=== PATIENT | female | born 1970 | race Caucasian/White ===

== ENCOUNTER 2016-10-04 16:56 | Inpatient (IN) | payer BC ==
[2016-10-04] MEDS ORDERED: ERTAPENEM 1 GM in NS 100 ML IV ONE (17:20)
--- NOTE | 2016-10-04 17:26 | EDPHY ---
H & P Stated Complaint: Just had US found gallstones referred for possible ERCP Time Seen by Provider: 10/04/16 17:12 - Personal History LMP (Females 10-55): 8-14 Days Ago Current Tetanus Diphtheria and Acellular Pertussis (TDAP): Yes - Medical/Surgical History Other PMH: Cancer dx at 18, HTN, hypothyrodism - Social History Smoking Status: Former smoker Constitutional: Initial Vital Signs Heart Rate 88 10/04/16 17:00 Respiratory Rate 14 10/04/16 17:00 Blood Pressure 145/99 H 10/04/16 17:00 O2 Sat (%) 100 10/04/16 17:00 O2 Delivery Mode Room Air Allergies/Adverse Reactions: morphine Allergy (Mild, Verified 10/04/16 17:06) Home Medications: Medication Instructions Recorded ALPRAZolam [Alprazolam] 0.5 mg PO BID 10/04/16 Amlodipine Besylate [Norvasc] 5 mg PO HS 10/04/16 Famotidine [Pepcid] 40 mg PO BID 10/04/16 Hydrochlorothiazide [HCTZ (*)] 25 mg PO DAILY 10/04/16 Levothyroxine [Synthroid 200 mcg 200 mcg PO DAILY06 10/04/16 (*)] Zolpidem Tartrate [Ambien 5MG (*)] 5 - 10 mg PO HS 10/04/16 Medical Decision Making - Diagnostics Imaging: Imaging Impressions Abdomen Ultrasound 10/04/16 16:00 Impression: 1. Cholelithiasis without secondary evidence of cholecystitis. 2. Large common duct raising the possibility of occult choledocholithiasis or history of passing gallstones. Consider preoperative MRCP if the patient is an operative candidate. Results called to Dr. Bright at 4:39 PM. ED Course/Re-evaluation: CHIEF COMPLAINT: RUQ abdominal pain HISTORY OF PRESENT ILLNESS: The patient is a 46 y/o female, with a history of hypertension, complaining of waxing and waning RUQ pain for the last couple days. Her pain is much worse after eating. She was evaluated by her PCP, Dr. Bright, and had labs and an abdominal ultrasound performed. The ultrasound showed cholelithiasis and choledocholithiasis and her LFTs were elevated so she was referred to the ED for possible ERCP. The patient denies fever, vomiting, diarrhea, or other symptoms. REVIEW OF SYSTEMS: A 10 point review of systems was performed and is negative with the exception of the elements mentioned in the history of present illness. PHYSICAL EXAM: General Appearance: Alert, well hydrated, appropriate, and non-toxic appearing. Head: Atraumatic without scalp tenderness or obvious injury Eyes: Pupils equal, round, reactive to light and accommodation, EOMI, no trauma , no injection. Nose: Atraumatic, no rhinorrhea, clear. Throat: mucus membranes moist. Neck: Supple, non-tender, no lymphadenopathy. Respiratory: No retractions, no distress, no wheezes, and no accessory muscle use. Lungs are clear to auscultation bilaterally. Cardiovascular: Regular rate and rhythm, no murmurs, rubs, or gallops. Good capillary refill all extremities. Gastrointestinal: Abdomen is soft, RUQ tenderness, non-distended, no masses, no rebound, no guarding, no peritoneal signs. Musculoskeletal: Normal active ROM of all extremities, atraumatic. Neurological: Alert, appropriate, and interactive. Nonfocal neuro exam. Skin: No rashes, good turgor, no nodules on palpation. PAST MEDICAL HISTORY: Hypertension, hypothyroidism PAST SURGICAL HISTORY: denies SOCIAL HISTORY: Family at bedside. . Lives in [place]. PCP: Dr. Bright. DIAGNOSTICS/PROCEDURES/CRITICAL CARE TIME: I viewed the images myself on the PACS system. DIFFERENTIAL DIAGNOSIS: The differential diagnosis for the patient's abdominal pain included but was not limited to ovarian cyst, pelvic inflammatory disease, ovarian torsion, urinary tract infection, ectopic , cholecystitis, and appendicitis. MEDICAL DECISION MAKING: This is a 46 y/o female, with a history of hypertension, who presents for possible ERCP following a few-day history of RUQ pain. She continues to have tenderness to her RUQ on exam. I reviewed the patient's labs and ultrasound from today. She has elevated LFTs, but no elevated WBC. She has not had a lipase lab drawn yet. Her ultrasound indicated cholelithiasis and choledocholithiasis. Plan for IV, lipase, antibiotics, and surgeon consult. 1715: Consulted with Dr. Mills, surgeon. He will assess patient in the ED. He also requests GI consult. 1720: 1gm IV Ertapenem administered. 1724: Spoke with hospitalist service. Dr. Pelaez accepts admission. 1739: Consulted with Dr. Bustamante GI. She will consult on patient during admission. 1754: Consulted again with Dr. Bustamante GI. She is requesting an MRCP. 1954: MRCP shows 2mm common duct stone. GI and surgery paged. 1999: Spoke with Dr. Mills. He is aware of the imaging findings. - Data Points Medications Given: Discontinued Medications Ertapenem 1 gm/ Sodium (Chloride) 100 mls @ 200 mls/hr IV EDNOW ONE PRN Reason: Protocol Stop: 10/04/16 17:49 Last Admin: 10/04/16 19:39 Dose: 100 mls Departure - Departure Disposition: [facility] Inpatient Acute Clinical Impression: Choledocholithiasis, Elevated LFTs Condition: Fair Report Scribed for: Vic Tong Report Scribed by: Vivienne Fleming Date of Report: 10/04/16 Time of Report: 17:18
[2016-10-04] MEDS ORDERED: HYDROmorphONE/DILAUDID 1 MG/ML SYR IVP PRN (18:21)
[2016-10-04] MEDS ORDERED: ONDANSETRON DISINTEGRATING 4 MG TAB PO PRN (18:21)
[2016-10-04] MEDS ORDERED: PROMETHAZINE HCL 25 MG TAB PO PRN (18:21)
[2016-10-04] MEDS ORDERED: ONDANSETRON 4 MG/2 ML VIAL IVP PRN (18:21)
[2016-10-04] MEDS ORDERED: LORazepam 0.5 MG TAB PO PRN (18:21)
[2016-10-04] MEDS ORDERED: ZOLPIDEM TARTRATE 5 MG TAB PO PRN (18:21)
[2016-10-04] MEDS ORDERED: ACETAMINOPHEN 325 MG TAB PO PRN (18:21)
[2016-10-04] MEDS ORDERED: NS 1,000 ML IV SCH (18:30)
--- NOTE | 2016-10-04 23:04 | GCON ---
[f rep st] CONSULTATION DATE OF CONSULTATION: 10/04/2016 CHIEF COMPLAINT: Abdominal pain. HISTORY OF PRESENT ILLNESS: This is an otherwise healthy 46-year-old female, who presented to her P CP earlier today with complaints of epigastric pain with nausea. The evaluation in the clinic offic e was concerning, so her primary care provider obtained labs and an ultrasound, which was concerning as the ultrasound showed cholelithiasis, a dilated common bile duct as well as elevated liver funct ion tests. She was subsequently referred here for further evaluation. On my evaluation, she denies having fevers or chills. The epigastric pain that she was experiencing previously has somewhat res olved, although still persistent. The patient is hungry and thirsty and wants to eat. The pain she was experiencing previously was right upper quadrant in nature, more so at times in the epigastrium with radiation to the back in a belt-like fashion. Fluid appeared to make it worse. She denies waters ving any fevers or chills. PAST MEDICAL HISTORY: Right lower extremity sarcoma removed at 18, hypertension, hyperthyroidism. PAST SURGICAL HISTORY: Right lower extremity sarcoma removal with radiation. CURRENT MEDICATIONS: Amlodipine, famotidine, hydrochlorothiazide, Synthroid, Ambien and alprazolam. ALLERGIES: Morphine. REVIEW OF SYSTEMS: A full 10-point review was performed and, unless explicitly stated above, is oth erwise negative. IMAGING: Ultrasound performed as an outpatient today shows: 1. Cholelithiasis without evidence for cholecystitis. 2. Large common bile duct, raising the possibility for choledocholithiasis. LABORATORY: Include liver function enzymes, which are elevated with a total bilirubin at 3.6 with a majority conjugated fraction at 2.3, AST is 500, ALT is 934, alkaline phosphatase is elevated at 17 9, lipase is normal at 266. MRCP was performed which corroborates choledocholithiasis, showing a 2.5 mm stone in the distal comm on bile duct. ASSESSMENT: 46-year-old female with choledocholithiasis. PLAN: The patient will subsequently be admitted to the medical service. Appreciate their admission . Gastroenterology service has already been requested as the patient requires ERCP for duct clearan ce. Once the duct is successfully cleared and the patient does not have any post ERCP pancreatitis, she will need cholecystectomy this admission. I [facility] She understands and wishes to proceed. All questions were answered. /[id number]/MODL
--- NOTE | 2016-10-04 23:38 | PDGENHP ---
History and Physical - Chief Complaint abdominal pain - History of Present Illness Patient is a 46-year-old female with a history of hypertension, hypothyroidism who presents to the ED with complaint of intermittent epigastric and right upper quadrant abdominal pain. Patient states her symptoms started approximately 3 days ago after eating lunch (Soup). She felt intense sharp right upper quadrant pain that radiated across her abdomen. The pain resolved after several minutes to an hour. Over the course of the following 2 days, she would again occasionally experience intense right upper quadrant / epigastric pain usually following a meal, today associated with nausea. On day of presentation she called her PMD regarding the symptoms and was evaluated. Blood work revealed elevated liver enzymes and mildly elevated bilirubin, so abdominal US was then ordered. This revealed cholelithiasis, with concern for choledocholithiasis, so she was advised to come to the ED for further evaluation /admission. She denies any associated fever, chills, diarrhea or change in bowel movements. On arrival to the ED patient was afebrile hemodynamically stable. MRCP was obtained and revealed a 2.5 mm stone in the common bile duct. GI and General surgery were consulted and the patient was admitted to the hospital service for further management. History Information - Allergies/Home Medication List Allergies/Adverse Reactions: morphine Allergy (Mild, Verified 10/04/16 17:06) Home Medications: ALPRAZolam [Alprazolam] 0.5 mg PO BID 10/04/16 [Last Taken 10/03/16] Amlodipine Besylate [Norvasc] 5 mg PO HS 10/04/16 [Last Taken 10/03/16] Famotidine [Pepcid] 40 mg PO BID 10/04/16 [Last Taken 10/04/16] Hydrochlorothiazide [HCTZ (*)] 25 mg PO DAILY 10/04/16 [Last Taken 10/04/16] Levothyroxine [Synthroid 200 mcg (*)] 200 mcg PO DAILY06 10/04/16 [Last Taken ] Zolpidem Tartrate [Ambien 5MG (*)] 5 - 10 mg PO HS 10/04/16 [Last Taken 10/03/16 ] I have personally reviewed and updated: family history, medical history, social history, surgical history - Past Medical History Additional medical history: Hypertension\. hypothyroidism. 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 Lives with her two young children. Review of Systems ROS: 10pt was reviewed & negative except for what was stated in HPI & below Physical Exam Temp Pulse Resp BP Pulse Ox 75 14 134/101 H 99 10/04/16 19:49 10/04/16 19:49 10/04/16 19:49 10/04/16 19:49 Constitutional: no apparent distress, appears nourished, not in pain Eyes: PERRL, anicteric sclera, EOMI Ears, Nose, Mouth, Throat: moist mucous membranes, hearing normal, ears appear normal, no oral mucosal ulcers Cardiovascular: regular rate and rhythym, no murmur, rub, or gallop, pulses symmetric bilaterally, No JVD, No edema Peripheral Pulses: 2+: dorsalis-pedis (R), dorsalis-pedis (L) Respiratory: no respiratory distress, no rales or rhonchi, clear to auscultation Gastrointestinal: normoactive bowel sounds, no palpable masses, tenderness ( mild tenderness in RUQ), No guarding, No rebound, No distension Genitourinary: no bladder fullness, no bladder tenderness Skin: warm, normal color, no rashes or abrasions, no fluctuance, no induration, No mottled Musculoskeletal: full muscle strength, no muscle tenderness, normal joint ROM, no joint effusions Neurologic: AAOx3, sensation intact bilaterally, CN II-XII Intact, No weakness, No numbness Lab Data & Imaging Review Lipase 266.0 IU/L (23-300) 10/04/16 17:40 Visualized and Interpreted imaging results: Yes Interpretation: Abdominal US: cholelithiasis without evidence of cholecystitis. MRCP: choledocholithiasis without evidence of cholecystitis Assessment & Plan Assessment: patient is a 46-year-old female with history of hypertension, hypothyroidism who presents to the ED with 3 days of intermittent right upper quadrant abdominal pain. ED evaluation reveals elevated LFTs, elevated bilirubins and MRCP revealed choledocholithiasis without evidence of acute cholecystitis. Plan: # choledocholithiasis MRCP reveals an obstructing 2.5 mm stone in the CBD. No evidence of systemic infection on presentation today (afebrile, without leukocytosis, VS stable). GI has been consulted and will plan for ERCP in AM. General surgery also involved as patient will likely require cholecystectomy during this admission. Will cover with antibiotics, f/u GI/ERCP results and control symptoms as needed. # hypertension BP moderately elevated on presentation, likely related to acute pain, anxiety and underlying chronic hypertension. Will continue home po med as needed. # hypothyroidism Will check TSH and continue synthroid. # dispo: admit to inpatient service for likely > 2 [place] stay # gen: NPO DVT ppx: lovenox Full code
[2016-10-04] MEDS: FAMOTIDINE 20 MG TAB PO SCH (23:54)
[2016-10-04] MEDS: amLODIPine BESYLATE 5 MG TAB PO SCH (23:55)
[2016-10-04] MEDS: ALPRAZolam 0.5 MG TAB PO SCH (23:55)
[2016-10-04] MEDS: ZOLPIDEM TARTRATE 5 MG TAB PO SCH (23:55)
[2016-10-05] MEDS: oxyCODONE IR 5 MG TAB PO PRN ×3 (02:56→17:38)
[2016-10-05] MEDS: LEVOTHYROXINE 200 MCG TAB PO SCH (06:28)
[2016-10-05] MEDS: FAMOTIDINE 20 MG TAB PO SCH ×2 (06:29→23:54)
[2016-10-05] MEDS: HYDROCHLOROTHIAZIDE 25 MG TAB PO SCH (06:29)
[2016-10-05 07:08] LABS: % IMMATURE GRANULYOCYTES 0.9 % (0.0-1.1); ABSOLUTE IMMATURE GRANULOCYTES 0.06 10^3/uL (0.00-0.10); ADD DIFF? NO; ADD MORPH? NO; ADD SCAN? NO; ATYPICAL LYMPHOCYTE FLAG 10 (0-99); FRAGMENT RBC FLAG 0 (0-99); HEMATOCRIT 42.6 % (38.0-47.0); HEMOGLOBIN 14.3 g/dL (12.6-16.3); LEFT SHIFT FLG 0 (0-99); LIPEMIA HEMOLYSIS FLAG 80 (0-99); MEAN CELL HEMOGLOBIN 30.2 pg (27.9-34.1); MEAN CELL HEMOGLOBIN CONCENTR. 33.6 g/dL (32.4-36.7); MEAN CELL VOLUME 90.1 fL (81.5-99.8); MEAN PLATELET VOLUME 10.1 fL (8.7-11.7); PLATELET CLUMPS FLAG 0 (0-99); PLATELET COUNT 243 10^3/uL (150-400); RED BLOOD CELL COUNT 4.73 10^6/uL (4.18-5.33); RED CELL DISTRIBUTION WIDTH 13.2 % (11.5-15.2)
[2016-10-05 07:10] LABS: ALANINE AMINOTRANSFERASE 717 IU/L (9-52); ALBUMIN 4.3 g/dL (3.5-5.0); ALKALINE PHOSPHATASE 172 IU/L (38-126); ANION GAP 11 mEq/L (8-16); ASPARTATE AMINOTRANSFERASE 328 IU/L (14-46); BILIRUBIN,TOTAL 3.8 mg/dL (0.1-1.4); CALCIUM 9.2 mg/dL (8.5-10.4); CARBON DIOXIDE 25 mEq/l (22-31); CHLORIDE 103 mEq/L (97-110); CREATININE 0.8 mg/dL (0.6-1.0); GLOMERULAR FILTRATION RATE > 60; GLUCOSE 90 mg/dL (70-100); MAGNESIUM 2.2 mg/dL (1.6-2.3); POTASSIUM 3.9 mEq/L (3.5-5.2); SODIUM 139 mEq/L (134-144); TOTAL PROTEIN 7.1 g/dL (6.3-8.2)
[2016-10-05 07:53] LABS: BILIRUBIN-CONJUGATED 2.9 mg/dL (0.0-0.5); BILIRUBIN-UNCONJUGATED 0.9 mg/dL (0.0-1.1)
--- NOTE | 2016-10-05 09:12 | SOAPPROG ---
SOAP Progress Note Assessment/Plan: Assessment: Admitted for choledocolithiasis, stone on MRCP Minimal pain today Hopeful for ERCP and lap bertram Sun/Mon S: Feeling better today. Eager to know when ERCP will be O: SItting in bed, appears comfortable, mom lying on couch Plan: 10/05/16 09:10 Objective: Vital Signs Temp Pulse Resp BP Pulse Ox 37.2 C 83 16 110/76 99 10/05/16 08:50 10/05/16 08:50 10/05/16 08:50 10/05/16 08:50 10/05/16 08:50 Laboratory Results 10/05/16 06:10 10/05/16 06:10 10/04/16 10/05/16 10/06/16 05:59 05:59 05:59 Intake Total 725 Balance 725 Physical Exam - Physical Exam General Appearance: WD/WN, alert, no apparent distress EENT: PERRL/EOMI, scleral icterus (R), scleral icterus (L) Respiratory: chest non-tender, lungs clear Cardiac/Chest: regular rate, rhythm Abdomen: normal bowel sounds, non-tender, soft ICD10 Worksheet Patient Problems: Problems Problem Status Onset Choledocholithiasis Acute Elevated LFTs Acute
--- NOTE | 2016-10-05 10:25 | GCON ---
[f rep st] CONSULTATION DATE OF CONSULTATION: 10/05/2016 CHIEF COMPLAINT: Abdominal pain. I am asked to see this patient in consultation by Dr. Latanya ann or chief complaint of abdominal pain. HPI: Patient is a pleasant 46-year-old, generally in good health until Friday when she noted ons et of pain in the epigastric area that spread bandlike across her abdomen. She had several discrete episodes and then developed nausea and vomiting. She presented to the emergency room and was found to have elevated liver function tests. She never had history of gallstone symptoms before, althoug rodriguez does have a long history of acid reflux generally controlled with acid reducers taken as needed. She has a history of dysphagia. She has had multiple endoscopies and upper GIs which were normal. It was thought that the dysphagia may be globus and she has had no strictures. She has had no abdom inal surgeries. The last episode of pain was last night. She is feeling much better today. She waters d an MRCP that confirmed a common duct stone. ALLERGIES: Morphine. CURRENT MEDICATIONS: , Norvasc, Pepcid, hydrochlorothiazide, Synthroid. PAST MEDICAL HISTORY: Notable for GERD, globus sensation, hypertension and a remote history of sarc kaleb. SOCIAL HISTORY: Patient is . Has 2 young children. Denies alcohol. FAMILY HISTORY: Notable for gallstones. REVIEW OF SYSTEMS: I have performed a complete review of systems which is negative except for perti nent positives and negatives noted in the HPI above. PHYSICAL EXAM: GENERAL: The patient is afebrile at 36 degrees, BP is 145/98, pulse 68. CONSTITUTI ONAL: Patient is alert and oriented. EYES: Patient has no scleral icterus. HEENT: No mouth lesi ons. CARDIOVASCULAR: Regular rate and rhythm. CHEST: Clear to auscultation. GI: Positive bowel sounds. Soft, some tenderness to very deep palpation in the right upper quadrant, but no rebound. NEUROLOGIC: Nonfocal. SKIN: No rashes. LABORATORY DATA: Notable for elevated alkaline phosphatase today, slightly down at 172 from yesterd ay. AST was 564, today 325. ALT yesterday 934, today 747, total bilirubin yesterday 3.6, today 3.8 . White count is normal at 9 with hematocrit of 42. Lipase normal at 266. Ultrasound yesterday sh owed cholelithiasis without secondary evidence of cholecystitis. Common duct is enlarged at 8 mm. The patient had an MRCP performed that showed a retained common duct stone measuring 2.5 mm. ASSESSMENT: 1. Elevated liver function tests. 2. Abdominal pain. 3. Abnormal imaging with gallstones on ultrasound with dilated duct and positive MRCP for retained common duct stone. There is no evidence of pancreatitis based on exam and lab results. PLAN: Recommend ERCP today which we will coordinate with anesthesia and then patient to have cholec ystectomy per Dr. Brooks. I discussed the risks and benefits of the ERCP with the patient and she ag cami to proceed. The patient has received antibiotics in the emergency room. Thank you for jono harkins to participate in the care of your patient. /[id number]/MODL
[2016-10-05] MEDS ORDERED: GLUCAGON,HUMAN RECOMBINANT 1 MG VIAL ONE (13:47)
[2016-10-05] MEDS ORDERED: IOTHALAMATE MEG (CONRAY) 50 ML VIAL IV ONE (13:47)
[2016-10-05] MEDS ORDERED: DEXAMETHASONE 4 MG/ML VIAL ONE ×2 (14:06)
[2016-10-05] MEDS ORDERED: fentaNYL 250 MCG/5 ML INJ ONE (14:06)
[2016-10-05] MEDS ORDERED: PROPOFOL 200 MG/20 ML VIAL ONE (14:06)
[2016-10-05] MEDS ORDERED: ONDANSETRON 4 MG/2 ML VIAL ONE ×2 (14:06)
[2016-10-05] MEDS ORDERED: ROCURONIUM 50 MG/5 ML VIAL ONE (14:07)
[2016-10-05] MEDS ORDERED: MIDAZOLAM 2 MG/2 ML VIAL ONE (14:07)
[2016-10-05] MEDS ORDERED: LIDOCAINE 2% 5 ML SDV ONE (14:07)
[2016-10-05] MEDS ORDERED: INDOMETHACIN 50 MG SUPP PR ONE (14:33)
[2016-10-05] MEDS ORDERED: SUGAMMADEX SODIUM 200 MG/2 ML VIAL IVP ONE (14:36)
[2016-10-05] MEDS ORDERED: fentaNYL 100 MCG/2 ML INJ ONE (15:23)
--- NOTE | 2016-10-05 15:36 | GPN ---
[f rep st] PROCEDURE NOTE PROCEDURE: Endoscopic retrograde cholangiopancreatography with sphincterotomy and stone extraction. INDICATION: The patient is a pleasant 46-year-old patient admitted for abdominal pain. Workup found elevated liver function tests, and CBD stone was confirmed on MRCP. ANESTHESIA: General, please see Anesthesia notes. PROCEDURE DESCRIPTION: After anesthesia was administered, the side-viewing scope was inserted into the esophagus and advanced without difficulty to the 2nd portion of the duodenum. The esophagus, stomach and duodenum were grossly normal. The papilla was somewhat prominent and mildly erythematous. Using sphincterotome, the common bile duct was deeply cannulated. Contrast was injected revealing dilated duct, approximately 9 mm in diameter, and filling defect compatible with a stone was seen in the distal bile duct, approximately 4 mm in diameter. Using the ERBE equipment, a 5 mm sphincterotomy was done at the 12 o'clock position and then the bile duct was swept 3 times with a 12 mm balloon. Contrast was injected only up to the bifurcation, and the cystic duct did not fill. At the end of the procedure, repeat cholangiogram up to the bifurcation showed no retained stones. The pancreas duct was entered once with a wire, but not injected. The patient tolerated the procedure well and there were no immediate complications. Estimated blood loss was minimal. I have personally interpreted the radiographic cholangiogram images. IMPRESSION: Choledocholithiasis, status post endoscopic retrograde cholangiopancreatography with sphincterotomy and stone extraction today. PLAN: 1. Check LFTs tomorrow. Dr. Bustamante will round. 2. Further recommendations per surgical team. I wish to thank for the opportunity to participate in the care of this most pleasant patient. /[id number]/MODL MTDD
--- NOTE | 2016-10-05 15:56 | HOSPPROG ---
Hospitalist Progress Note Assessment/Plan: Choledocholithiasis - MRCP showed 2.5 mm CBD stone. S/P ERCP today with sphincterotomy and stone extraction. No fevers or evidence of infection. She received IV Ertapenem on admission. Appreciate GI assistance and surgical consult. Likely to go to OR tomorrow or Friday for bertram with Dr. Brooks. Hypertension - cont outpt meds Hypothyroidism - cont synthroid Full code Dispo - cont inpt as will need surgical intervention Subjective: Pt feels well, currently pain free. No N/V. She is NPO. No CP or SOB> Objective: Vital Signs Temp Pulse Resp BP Pulse Ox 36.5 C 88 20 128/89 H 100 10/05/16 15:16 10/05/16 15:16 10/05/16 15:40 10/05/16 15:29 10/05/16 15:40 Laboratory Results 10/05/16 06:10 10/05/16 06:10 10/04/16 10/05/16 10/06/16 05:59 05:59 05:59 Intake Total 725 400 Output Total 5 Balance 725 395 - Physical Exam Constitutional: no apparent distress Eyes: PERRL Ears, Nose, Mouth, Throat: moist mucous membranes Cardiovascular: regular rate and rhythym Respiratory: no respiratory distress, clear to auscultation Gastrointestinal: normoactive bowel sounds, other (+RUQ tenderness, no r/r/g, + BS) Skin: warm Musculoskeletal: full muscle strength Neurologic: AAOx3 Psychiatric: interacting appropriately ICD10 Worksheet Patient Problems: Problems Problem Status Onset Choledocholithiasis Acute Elevated LFTs Acute
[2016-10-05] MEDS: ALPRAZolam 0.5 MG TAB PO SCH ×2 (16:35→23:57)
[2016-10-05] MEDS: ZOLPIDEM TARTRATE 5 MG TAB PO SCH (23:55)
[2016-10-05] MEDS: amLODIPine BESYLATE 5 MG TAB PO SCH (23:57)
[2016-10-06] MEDS: LEVOTHYROXINE 200 MCG TAB PO SCH (06:15)
[2016-10-06 06:38] LABS: HEMATOCRIT 38.2 % (38.0-47.0); MEAN CELL HEMOGLOBIN 30.7 pg (27.9-34.1); MEAN CELL VOLUME 90.1 fL (81.5-99.8); RED BLOOD CELL COUNT 4.24 10^6/uL (4.18-5.33)
[2016-10-06 06:56] LABS: ALANINE AMINOTRANSFERASE 485 IU/L (9-52); ALBUMIN 3.9 g/dL (3.5-5.0); ALKALINE PHOSPHATASE 129 IU/L (38-126); ANION GAP 8 mEq/L (8-16); ASPARTATE AMINOTRANSFERASE 85 IU/L (14-46); CALCIUM 8.7 mg/dL (8.5-10.4); CARBON DIOXIDE 23 mEq/l (22-31); CHLORIDE 108 mEq/L (97-110); CREATININE 0.7 mg/dL (0.6-1.0); GLOMERULAR FILTRATION RATE > 60; GLUCOSE 167 mg/dL (70-100); SODIUM 139 mEq/L (134-144); TOTAL PROTEIN 6.5 g/dL (6.3-8.2)
[2016-10-06] MEDS ORDERED: ceFAZolin 2 GM/DEXTROSE 100 ML IV ONE (07:22)
[2016-10-06] MEDS ORDERED: BUPIVACAINE 0.5% 30 ML SDV ONE (07:35)
[2016-10-06] MEDS ORDERED: CEFAZOLIN 2 GM/DEXTROSE/100 ML BAG IV ONE (07:35)
--- NOTE | 2016-10-06 07:41 | SOAPPROG ---
SOAP Progress Note Assessment/Plan: Assessment: Admitted for choledocolithiasis, stone on MRCP s/p ERCP No lipase Lap bertram today Risks and benefits including but not limited to stroke, heart attack, , blood clots, infection, bleeding, damage to surrounding structures were discussed S: Feeling better today. Slept well O: SItting in bed, appears comfortable, mom lying on couch CTAB RRR Sft Plan: 10/05/16 09:10 10/06/16 07:39 Objective: Vital Signs Temp Pulse Resp BP Pulse Ox 37.0 C 86 16 124/89 H 97 10/05/16 19:30 10/05/16 19:30 10/05/16 19:30 10/05/16 19:30 10/05/16 19:30 Laboratory Results 10/06/16 06:10 10/06/16 06:10 10/05/16 10/06/16 10/07/16 05:59 05:59 05:59 Intake Total 725 400 Output Total 5 Balance 725 395 ICD10 Worksheet Patient Problems: Problems Problem Status Onset Choledocholithiasis Acute Elevated LFTs Acute
[2016-10-06] MEDS ORDERED: ROCURONIUM 50 MG/5 ML VIAL ONE (08:15)
[2016-10-06] MEDS ORDERED: KETOROLAC 30 MG/1 ML SDV ONE (08:15)
[2016-10-06] MEDS ORDERED: PROPOFOL 200 MG/20 ML VIAL ONE (08:15)
[2016-10-06] MEDS ORDERED: ONDANSETRON 4 MG/2 ML VIAL ONE (08:15)
[2016-10-06] MEDS ORDERED: LIDOCAINE 2% 100 MG/5 ML SYR ONE (08:15)
[2016-10-06] MEDS ORDERED: fentaNYL 250 MCG/5 ML INJ ONE (08:15)
[2016-10-06] MEDS ORDERED: DEXAMETHASONE 4 MG/ML VIAL ONE (08:15)
[2016-10-06] MEDS ORDERED: MIDAZOLAM 2 MG/2 ML VIAL ONE (08:20)
[2016-10-06] MEDS ORDERED: SUGAMMADEX SODIUM 200 MG/2 ML VIAL IVP ONE (09:10)
[2016-10-06] MEDS ORDERED: fentaNYL 100 MCG/2 ML INJ ONE ×2 (09:14→09:34)
--- NOTE | 2016-10-06 09:22 | POSTOPPROG ---
Post Op Note Date of Operation: 10/06/16 Surgeon: Laquita Brooks Anesthesiologist: libra Anesthesia: GET(General Endotracheal) Pre-op Diagnosis: choledocolithiasis Post-op Diagnosis: same Indication: 46 yo with choledocolithiasis Procedure: lap bertram Findings: elongated gb Inf/Abcess present in the surg proc area at time of surgery?: No EBL: Minimal
[2016-10-06] MEDS ORDERED: HYDROmorphONE/DILAUDID 2 MG/ML INJ ONE (09:34)
--- NOTE | 2016-10-06 10:03 | GOP ---
[f rep st] OPERATIVE REPORT DATE OF OPERATION: 10/06/2016 SURGEON: Laquita Brooks MD ANESTHESIA: General. ANESTHESIOLOGIST: Dr. Kojo Oconnor. PREOPERATIVE DIAGNOSIS: Choledocholithiasis. POSTOPERATIVE DIAGNOSIS: Choledocholithiasis. PROCEDURE PERFORMED: Laparoscopic cholecystectomy. FINDINGS: Elongated gallbladder. SPECIMENS: Gallbladder. ESTIMATED BLOOD LOSS: 10 cc. INDICATIONS: The patient is a 46-year-old who presented with choledocholithiasis. She had an ERCP, and a stone was extracted. DESCRIPTION OF PROCEDURE: The patient was brought into the operating room, placed supine on the tab le, and general anesthesia was administered. Her abdomen was prepped and draped in the usual steril e fashion. I infiltrated all sites with 0.5% Marcaine prior to making incision. I made an incision at the umbilicus. I inserted the Veress needle. It passed the hanging drop test. Her abdomen ins ufflated easily to a pressure of 15 mmHg. I placed a 5 mm trocar with a camera at this site. There were no injuries from Veress needle placement. Under direct vision, I placed a 10 mm subxiphoid tr ocar and two 5 mm trocars along the right costal margin. I lifted the gallbladder cephalad. I had to dissect adhesions away from the gallbladder. I then could lift it laterally to expose the triang le of Calot. I skeletonized the cystic artery and the cystic duct so that they were the only 2 stru ctures directly entering the gallbladder. The cystic artery and cystic duct were both clipped singl y toward the gallbladder and doubly clipped distally, and transected with scissors. The gallbladder was removed from the gallbladder fossa with electrocautery and placed in an EndoCatch bag. It was retrieved via the 10 mm trocar. The clips were in satisfactory position. Hemostasis was achieved. The 10 mm trocar site was closed with 0 Vicryl using a fascial closure device. The ports were king bari under direct vision, the abdomen allowed to desufflate. The skin closed with 4-0 Monocryl. Trevor mabond applied. She was awakened in the operating room, extubated, and transferred to PACU in sta e condition. /[id number]/MODL
[2016-10-06] MEDS: ALPRAZolam 0.5 MG TAB PO SCH ×3 (10:25→23:33)
[2016-10-06] MEDS: HYDROCHLOROTHIAZIDE 25 MG TAB PO SCH ×3 (10:27→12:59)
--- NOTE | 2016-10-06 10:37 | SOAPPROG ---
SOAP Progress Note Assessment/Plan: Assessment: Post ERCP with stone extraction doing well. Had lap choley today Plan: No new rec Advance diet and post op care per surgery Will sign off 10/06/16 10:33 Subjective: CC abd pain Having some post op pain but better overall Objective: Vital Signs Temp Pulse Resp BP Pulse Ox 37.0 C 94 20 117/78 100 10/06/16 09:44 10/06/16 09:44 10/06/16 10:15 10/06/16 10:02 10/06/16 10:10 Laboratory Results 10/06/16 06:10 10/06/16 06:10 10/05/16 10/06/16 10/07/16 05:59 05:59 05:59 Intake Total 725 400 500 Output Total 5 5 Balance 725 395 495 Physical Exam - Physical Exam General Appearance: alert EENT: PERRL/EOMI Respiratory: lungs clear, normal breath sounds Cardiac/Chest: regular rate, rhythm Abdomen: normal bowel sounds ICD10 Worksheet Patient Problems: Problems Problem Status Onset Choledocholithiasis Acute Elevated LFTs Acute
[2016-10-06] MEDS: oxyCODONE IR 5 MG TAB PO PRN ×6 (11:21→23:36)
[2016-10-06] MEDS: FAMOTIDINE 20 MG TAB PO SCH ×2 (12:53→23:33)
--- NOTE | 2016-10-06 14:52 | HOSPPROG ---
Hospitalist Progress Note Assessment/Plan: Choledocholithiasis - S/P ERCP with stone extraction and sphincterotomy. Lap bertram today, POD #0. Poor pain control. -up-titrate pain meds -surgery and GI following, appreciate assistance Hypertension - cont outpt meds Hypothyroidism - cont synthroid Full code Dispo - cont inpt, possible d/c tomorrow Subjective: Pt doing well post-op. She has passed flatus. No fevers. Poor pain control, asking for more pain meds. Notes high tolerance to meds in general, does not take chronic opiates. Objective: Vital Signs Temp Pulse Resp BP Pulse Ox 36.7 C 77 16 127/87 H 100 10/06/16 10:40 10/06/16 10:40 10/06/16 10:40 10/06/16 12:59 10/06/16 10:40 Laboratory Results 10/06/16 06:10 10/06/16 06:10 10/05/16 10/06/16 10/07/16 05:59 05:59 05:59 Intake Total 725 400 500 Output Total 5 5 Balance 725 395 495 - Physical Exam Constitutional: no apparent distress Eyes: PERRL Ears, Nose, Mouth, Throat: moist mucous membranes Cardiovascular: regular rate and rhythym Respiratory: no respiratory distress Gastrointestinal: normoactive bowel sounds, soft, non-tender abdomen Skin: warm Neurologic: AAOx3 Psychiatric: interacting appropriately Lymph, Heme, Immunologic: no cervical LAD ICD10 Worksheet Patient Problems: Problems Problem Status Onset Choledocholithiasis Acute Elevated LFTs Acute
[2016-10-06] MEDS ORDERED: HYDROmorphONE/DILAUDID 1 MG/ML SYR IVP PRN (14:53)
[2016-10-06] MEDS: amLODIPine BESYLATE 5 MG TAB PO SCH (23:33)
[2016-10-06] MEDS: ZOLPIDEM TARTRATE 5 MG TAB PO SCH (23:33)
[2016-10-07] MEDS: oxyCODONE IR 5 MG TAB PO PRN ×5 (04:14→13:21)
[2016-10-07] MEDS: ALPRAZolam 0.5 MG TAB PO SCH (06:19)
[2016-10-07] MEDS: HYDROCHLOROTHIAZIDE 25 MG TAB PO SCH (06:19)
[2016-10-07] MEDS: FAMOTIDINE 20 MG TAB PO SCH (06:20)
[2016-10-07] MEDS: LEVOTHYROXINE 200 MCG TAB PO SCH (06:20)
[2016-10-07 06:54] LABS: HEMOGLOBIN 12.2 g/dL (12.6-16.3); MEAN CELL HEMOGLOBIN 30.4 pg (27.9-34.1); MEAN CELL VOLUME 92.3 fL (81.5-99.8); RED BLOOD CELL COUNT 4.01 10^6/uL (4.18-5.33); RED CELL DISTRIBUTION WIDTH 13.2 % (11.5-15.2)
[2016-10-07 07:28] LABS: ALANINE AMINOTRANSFERASE 327 IU/L (9-52); ALBUMIN 3.7 g/dL (3.5-5.0); ALKALINE PHOSPHATASE 104 IU/L (38-126); ANION GAP 9 mEq/L (8-16); ASPARTATE AMINOTRANSFERASE 58 IU/L (14-46); BILIRUBIN,TOTAL 0.8 mg/dL (0.1-1.4); CALCIUM 8.7 mg/dL (8.5-10.4); CARBON DIOXIDE 27 mEq/l (22-31); CHLORIDE 106 mEq/L (97-110); CREATININE 0.8 mg/dL (0.6-1.0); GLOMERULAR FILTRATION RATE > 60; GLUCOSE 95 mg/dL (70-100); POTASSIUM 3.9 mEq/L (3.5-5.2); SODIUM 142 mEq/L (134-144); TOTAL PROTEIN 6.2 g/dL (6.3-8.2)
[2016-10-07 09:02] VITALS: BP 104/70; PULSE 71; RESP 18; TEMP 98.2; O2SAT 98
--- NOTE | 2016-10-07 10:06 | SOAPPROG ---
SOAP Progress Note Assessment/Plan: Assessment: 46yo F admitted c choledocholithiasis, s/p ERCP and lap bertram Pain controlled c Oxy IR q3h No nausea LFT improving, bili WNL Tolerating regular diet Passing flatus, no BM Likely home later today. F/u 2 weeks S: Feeling well. Passing gas. Pain controlled c Oxy IR. O: Sitting in bed, appears comfortable, mom lying on couch CTAB, no increased WOB RRR +BS, abd soft, nt, nd. Ecchymosis around incisions, CDI 10/07/16 10:06 Objective: Vital Signs Temp Pulse Resp BP Pulse Ox 36.8 C 71 18 104/70 98 10/07/16 08:00 10/07/16 08:00 10/07/16 08:00 10/07/16 08:00 10/07/16 08:00 Laboratory Results 10/07/16 06:25 10/07/16 06:25 10/06/16 10/07/16 10/08/16 05:59 05:59 05:59 Intake Total 400 1999 Output Total 5 5 Balance 395 1994 ICD10 Worksheet Patient Problems: Problems Problem Status Onset Choledocholithiasis Acute Elevated LFTs Acute
[2016-10-07] MEDS ORDERED: MAGNESIUM HYDROXIDE 30 ML UDCUP PO PRN (10:19)
[2016-10-07] MEDS ORDERED: BISACODYL 10 MG SUPP PR PRN (10:19)
[2016-10-07] MEDS ORDERED: LACTULOSE 20 GM/30 ML UDCUP PO PRN (10:19)
[2016-10-07] MEDS ORDERED: POLYETHYLENE GLYCOL 3350 17 GM PKT PO PRN (10:19)
[2016-10-07] MEDS ORDERED: SENNOSIDES/DOCUSATE SODIUM TAB PO SCH (10:30)
--- NOTE | 2016-10-08 04:33 | GDS ---
[f rep st] DISCHARGE SUMMARY DISCHARGE DIAGNOSES: 1. Choledocholithiasis. 2. Status post endoscopic retrograde cholangiopancreatography with stone extraction and sphincterot shirley. 3. Status post laparoscopic cholecystectomy. 4. Hypertension. 5. Hypothyroidism. CONSULTATIONS: 1. Dr. Ruth Bustamante, Gastroenterology. 2. Dr. Janel Brooks, General Surgery. IMAGING/PROCEDURES: 1. Abdomen MRI October 04, 2016, showed choledocholithiasis, 2.5 mm stone in the distal common bile d uct, as well as cholelithiasis. No evidence of pancreatitis or free fluid. 2. Endoscopic retrograde cholangiopancreatography October 05, 2016, performed by Dr. Vishal Hannon. Joby gale had successful extraction of this common bile duct stone, followed by sphincterotomy. 3. Laparoscopic cholecystectomy, October 06, 2016, performed by Dr. Janel Brooks. HISTORY: For details, please see dictated history and physical dated October 04, 2016, by Dr. Shahnaz Vo. In brief, the patient is a 46-year-old female with history of hypertension and hypothyr oidism who presented to the emergency department with right upper quadrant pain, nausea, and vomitin g. She was admitted to the hospital for further management. HOSPITAL COURSE: Patient was admitted to the med/surg unit. Initial imaging, including an MRCP, re vealed an obstructing common bile duct stone with elevated liver function tests. GI consult was obt ained. She underwent ERCP as described above. There were no complications. After this procedure, she was made n.p.o. and taken to the OR by Dr. Janel Brooks for cholecystectomy. She recovered well from her cholecystectomy without complications. She was continued on her usual antihypertensives an d thyroid medication. DISPOSITION: Patient is discharged to home in stable condition. DISCHARGE MEDICATIONS: Please see [facility] for complete updated outpatient medication list. New me dications on discharge include oxycodone 5-10 mg p.o. q.2 hours p.r.n., #30, no refills. FOLLOWUP: Patient will follow up with Dr. Janel Brooks in 2 weeks, as well as Dr. Jamey Bright h primary care physician. She is instructed to maintain a low-fat diet, avoid heavy lifting greate r than 10 pounds, until she sees her surgeon. /[id number]/MODL
== END 2016-10-07 16:30 | disposition home or self-care (01) | DRG 419 ==
LOC: FOB 20:30
PROVIDERS: ADMIT Internal Medicine; ATTEND Hospitalist
PROC: BF131ZZ Fluoroscopy of Gallbladder and Bile Ducts using Low Osmolar Contrast (ICD-10-PCS; 2016-10-05)
PROC: 0FC98ZZ Extirpation of Matter from Common Bile Duct, Via Natural or Artificial Opening Endoscopic (ICD-10-PCS; 2016-10-05)
PROC: 0FT44ZZ Resection of Gallbladder, Percutaneous Endoscopic Approach (ICD-10-PCS; principal; 2016-10-06 08:25)
DX: K80.50 Calculus of bile duct without cholangitis or cholecystitis without obstruction (principal); K21.9 Gastro-esophageal reflux disease without esophagitis; I10 Essential (primary) hypertension; E03.9 Hypothyroidism, unspecified; Z87.891 Personal history of nicotine dependence; Z85.89 Personal history of malignant neoplasm of other organs and systems
CPT/HCPCS: J0690; J1100; J1170; J1335; J1610; J1885; J2001; J2250; J2405; J2704; J3010; Q9961

== ENCOUNTER → 2017-01-10 | Outpatient (CLI) | payer BC | LOC: FIMAGING 12:56 | PROVIDERS: ATTEND Internal Medicine | DX: M79.672 Pain in left foot (principal) ==